=== PATIENT | female | born 1995 | race Caucasian/White ===

== ENCOUNTER → 2017-07-20 18:55 | Outpatient (CLI) | payer BC, SELFPAY ==
[2017-07-23 14:29] LABS: HPV Reflexed? NOT INDICATED
== END ==
PROVIDERS: Family Provider Obstetrics & Gynecology; PCP Obstetrics & Gynecology; Visit Provider Obstetrics & Gynecology
DX: Z01.419 Encounter for gynecological examination (general) (routine) without abnormal findings (principal)
CPT/HCPCS: 88175; G0145

== ENCOUNTER → 2017-08-06 14:15 | Outpatient (CLI) | payer BC, SELFPAY ==
--- NOTE | 2017-08-06 | CER_PTH ---
PATIENT: FAGN RAMIREZ [facility] U#:[id number] AGE/SX: 29/F ROOM: RE08/06/[address]: Dr. Rene Drew MD : 1995 BED: DIS: SPEC #: [id number] RECD: 08/09/17 13:21 STATUS: THALIA WAYNE #: [id number] ZACH: 08/06/17 00:[address]: Rene Drew DEPT: SURGICAL PATHOLOGY RECD BY: Edward Chacko Tissues: A - Uterine cervix, NOS B - Uterine cervix, NOS C - Endocervical Procedures: Surgery Specimen Level IV HEADER OPERATION: Colposcopy PRE-OP DIAGNOSIS: [facility] TISSUE SUBMITTED: A ? Cervical biopsy at 6 o?clock, B - Cervical biopsy at 11 o?clock, C - ECC MICROSCOPIC DIAGNOSIS A. 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 Chronic inflammation. See comment. B. Cervix, 11 o?clock, biopsy: Focal changes consistent with HPV cytopathic effects. See comment. C. ECC: Fragments of benign ecto- and endocervical epithelium, negative for dysplasia. SJ:brandy 08/10/17 COMMENT A & B. Immunohistochemistry ([id number]) for surrogate HPV marker (p16) will be reported separately. MICROSCOPIC DESCRIPTION Slides are reviewed. GROSS DESCRIPTION A - Received in fixative is one container labeled with the patient's name and designated cervical biopsy 6 o'clock. The specimen consists of one irregular fragment of light wyman soft tissue that measures 0.4 x 0.3 x 0.1 cm. The specimen is totally submitted in one cassette. B - Received in fixative is one container labeled with the patient's name and designated cervical biopsy 11 o'clock. The specimen consists of one irregular fragment of light wyman soft tissue that measures 0.3 x 0.3 x 0.1 cm. The specimen is totally submitted in one cassette. C - Received in fixative is one container labeled with the patient's name and designated ECC. The specimen consists of multiple fragments of hemorrhagic mucoid tissue that in aggregate measure 1 x 0.2 x 0.1 cm. The specimen is totally submitted in one cassette. / SEUN:brandy 08/09/17 TC: 5 CPT: 15392 x3
--- NOTE | 2017-08-06 | IMM_PTH ---
PATIENT: FANG RAMIREZ LOC: [facility] U#:[id number] AGE/SX: 29/F ROOM: RE08/06/[address]: Dr. Rene Drew MD : 1995 BED: DIS: SPEC #: [id number] RECD: 08/10/17 10:58 STATUS: THALIA WAYNE #: [id number] ZACH: 08/06/17 00:[address]: Rene Drew DEPT: IMMUNOHISTOCHEMISTRY RECD BY: Eryn Covarrubias Tissues: A - Uterine cervix, NOS B - Uterine cervix, NOS Procedures: p16 (initial) KI-67 (add) PHYSICIAN & [place] [id number] SPECIMEN INFORMATION: Tissue Source: A ? Cervical biopsy at 6 o?clock, B - Cervical biopsy at 11 o?clock Clinical Info: [facility] Specimen Number: [id number] A & B CPT code: 75708 x2, 53876 x2 METHODOLOGY: Deparaffinized sections of prefer/formalin-fixed tissue or PAP/DQ stained slides are incubated with monoclonal/polyclonal antibodies/oligonucleotide probes. Localization is made via biotin free immunoperoxidase method. Appropriate controls are performed and reacted as expected. Results on target cell population are indicated in the following table: RESULTS: ANTIBODY / CLONE RESULT Block A P16 (E6H4) positive, focal and patchy Ki-67 (30-9) positive, low Block B P16 (E6H4) negative Ki-67 (30-9) negative These tests were developed and their performance characteristics determined by [facility]. They may not have been cleared or approved by the U.S. Food and Drug Administration. The FDA has determined that such clearance or approval is not necessary. INTERPRETATION: A. Cervix, 6 o?clock, biopsy: Focal mild squamous dysplasia. B. Cervix, 11 o?clock, biopsy: Focal changes consistent with HPV cytopathic effects. SJ:brandy 08/11/17
--- NOTE | 2017-08-06 14:15 | DT_ITS ---
This patient was seen during an EMR downtime August 02, 2017 - August 09, 2017. This patient may have a combination of paper and electronic documentation or all paper documentation. All documentation is viewable within the e-chart portion of AppSheet for each patient visit.
== END ==
PROVIDERS: Visit Provider Obstetrics & Gynecology
DX: R87.611 Atypical squamous cells cannot exclude high grade squamous intraepithelial lesion on cytologic smear of cervix (ASC-H) (principal)
CPT/HCPCS: 88305; 88341; 88342

== ENCOUNTER → 2018-03-17 16:11 | Outpatient (CLI) | payer BC, SELFPAY ==
[2014-10-27 15:24] VITALS: BMI 25.0
--- NOTE | 2018-03-17 | CER_PTH ---
PATIENT: FANG RAMIREZ LOC: [facility]#:[id number] AGE/SX: 29/F ROOM: RE03/17/[address]: Dr. Laura Davis MD : 1995 BED: DIS: SPEC #: [id number] RECD: 03/17/18 15:50 STATUS: THALIA WAYNE #: [id number] ZACH: 03/17/18 00:[address]: Laura Magallon DEPT: SURGICAL PATHOLOGY RECD BY: Poli Heredia Tissues: A - Uterine cervix, NOS B - Uterine cervix, NOS C - Endocervical Procedures: Surgery Specimen Level IV HEADER OPERATION: Colposcopy PRE-OP DIAGNOSIS: R87.611 TISSUE SUBMITTED: A - Cervical biopsy 5 o'clock, B - Cervical biopsy 12 o'clock, C - [facility] MICROSCOPIC DIAGNOSIS A. Cervix, 5 o'clock, biopsy: Focal HPV changes suspected. B. Cervix, 12 o'clock, biopsy: Focal HPV change/TYSON I. Mild chronic inflammation. C. Endocervix, curettings: Strips of benign superficial endocervix. AM:joselyn 03/21/18 COMMENT A&B: Results from immunohistochemistry ([id number]) for surrogate HPV marker (p16) will be reported separately. MICROSCOPIC DESCRIPTION Slides are reviewed. GROSS DESCRIPTION A. Received in fixative is one container labeled with the patient's name and designated cervical biopsy, 5 o'clock. The specimen consists of one fragment 0.5 x 0.5 x 0.1 cm. The specimen is totally submitted in one cassette. B. Received is one container labeled with the patient name and designated cervical biopsy, 12 o'clock. The specimen consists of multiple irregular fragments of light wyman soft tissue that in aggregate measure 0.6 x 0.5 x 0.1 cm. The specimen is totally submitted in one cassette. C. Received is one container labeled with the patient name and designated ECC cell block. The specimen consists of one irregular fragment of light wyman soft tissue that measures 2.5 cm. The specimen is totally submitted in one cassette. / AM:joselyn 03/19/18 TC: 3 CPT: 04726 x3
--- NOTE | 2018-03-17 15:50 | IMM_PTH ---
PATIENT: FANG RAMIREZ LOC: [facility] U#:[id number] AGE/SX: 29/F ROOM: RE03/17/[address]: Dr. Laura Davis MD : 1995 BED: DIS: SPEC #: [id number] RECD: 03/21/18 12:00 STATUS: THALIA WAYNE #: [id number] ZACH: 03/17/18 15:[address]: Laura Magallon DEPT: IMMUNOHISTOCHEMISTRY RECD BY: Sherri Monzon Tissues: A - Uterine cervix, NOS B - Uterine cervix, NOS Procedures: p16 (initial) KI-67 (add) P16 (add) PHYSICIAN & [place] [address] SPECIMEN INFORMATION: Tissue Source: A. Cervical biopsy 5 o'clock, B. Cervical biopsy 12 o'clock Clinical Info: R87.611 Specimen Number: [id number] A & B CPT code: 47824, 17466 x3 METHODOLOGY: Deparaffinized sections of prefer/formalin-fixed tissue or PAP/DQ stained slides are incubated with monoclonal/polyclonal antibodies/oligonucleotide probes. Localization is made via biotin free immunoperoxidase method. Appropriate controls are performed and reacted as expected. Results on target cell population are indicated in the following table: RESULTS: ANTIBODY / CLONE RESULT Block A P16 (E6H4) positive, rare Ki-67 (30-9) positive, low Block B P16 (E6H4) positive, focal Ki-67 (30-9) positive, low These tests were developed and their performance characteristics determined by [facility]. They may not have been cleared or approved by the U.S. Food and Drug Administration. The FDA has determined that such clearance or approval is not necessary. INTERPRETATION: A. Cervical biopsy 5 o'clock: Suspicious for focal HPV change. B. Cervical biopsy 12 o'clock: Consistent with focal HPV change. AM:brandy 03/22/18
[2018-03-21 13:21] LABS: HPV Reflexed? NOT INDICATED
--- OUTSIDE RECORDS SUMMARY | 2018-05-22 11:48 | XMS RPT_ITS ---
:1995 External Reference #:[id number] Author Organization [facility] Care Team Providers Name Role Phone ReillyLaura Harris Attending Unavailable Reilly-Ryan, Summer Referring Unavailable Reilly-Ryan, Summer Primary Care Unavailable Reilly-Ryansummer Attending Unavailable Reilly-Ryansummer Primary Care Unavailable Rene Drew Attending Unavailable PROBLEMS PROBLEMS DATE TYPE CONDITION / CODE ATTENDING STATUS SOURCE 03/17/2018 Unknown R87.611 - Atypical Raymundo Active [place] squamous cells cannot [facility] exclude high grade Hospital squamous Repository intraepithelial lesion on cytologic smear of cervix (ASC-H) / R87.611(ICD-10) 07/22/2017 Unknown Z12.4 - Encounter for Caryl Fonseca screening for [facility] malignant neoplasm of Hospital cervix / Repository Z12.4(ICD-10) 07/22/2017 Unknown Z01.419 - Encounter Caryl Fonseca for gynecological [facility] examination (general) Hospital (routine) without Repository abnormal findings / Z01.419(ICD-10) PROCEDURES PROCEDURES No Procedure Records FoundRESULTS RESULTS IMMUNOHISTOCHEMISTRY Observed: 03/17/2018 Status: F Source: [place] 3:50 PM [facility] REPOSITORY Patient: BELGICA RAMIREZ : 1995 () Acct Num: [id number] Phys: Raymudno SANCHEZ,Summer Unit Num: [id number] Loc: [facility] Specimen: [id number] Received: 03/21/18 - 1200 Spec Type: IMMUNO TISSUES 1 TISSUES: A. Uterine cervix, NOS B. Uterine cervix, NOS SPECIMEN INFORMATION: Tissue Source: A. Cervical biopsy 5 o'clock, B. Cervical biopsy 12 o'clock Clinical Info: R87.611 Specimen Number: [id number] A AND B CPT code: 73488, 36430 x3 METHODOLOGY: Deparaffinized sections of prefer/formalin-fixed tissue or PAP/DQ stained slides are incubated with monoclonal/polyclonal antibodies/oligonucleotide probes. Localization is made via biotin free immunoperoxidase method. Appropriate controls are performed and reacted as expected. Results on target cell population are indicated in the following table: RESULTS: ANTIBODY / CLONE RESULT Block A P16 (E6H4) positive, rare Ki-67 (30-9) positive, low Block B P16 (E6H4) positive, focal Ki-67 (30-9) positive, low These tests were developed and their performance characteristics determined by [facility]. They may not have been cleared or approved by the U.S. Food and Drug Administration. The FDA has determined that such clearance or approval is not necessary. INTERPRETATION: A. Cervical biopsy 5 o'clock: Suspicious for focal HPV change. B. Cervical biopsy 12 o'clock: Consistent with focal HPV change. AM:brandy 03/22/18 PHYSICIAN AND INSTITUTION [address] [address] Signed Champ Pink DO 03/22/18 <signature on file> Performed By: #### PIMM #### [facility] [address] [place] [address]. [place], [address] PAP I-G W/RFX Collected: 03/17/2018 Status: F Source: [place] HRHPV-APTIMA 10:45 AM [facility] REPOSITORY Order Comment: CYTOLOGY INFORMATION: - CLINICAL INFORMATION: - DATE LMP/MENOPAUSE: 03/07/18 LMP - COLLECTION VIAL: Thin Prep Vial - CONTRACT PROCESSOR SOURCE: CERVICAL/ENDOCERVICAL - COLLECTION TECHNIQUE: BRUSH/SPATULA Specimen Comment: [id number] Specimen Comment: Source.............Endocervix;Labia/Vulva Specimen Comment: LMP / Prev Treat...TDK=[id number] Specimen Comment: No. of containers..01 ThinPrep Vial TYPE CODE TESTS RESULT OUT OF RANGE REFERENCE UNITS LAB L7400.0800 . Normal DIAGN Comment Result Comment: NEGATIVE FOR INTRAEPITHELIAL LESION OR MALIGNANCY. LAB L7400.0900 . Normal ADEQ Comment Result Comment: Satisfactory for evaluation. Endocervical and/or squamous metaplastic cells (endocervical component) are present. LAB L7400.1400 . Normal PERFORM Comment Result Comment: Destiny Murillo, Improvement Spec LAB L7400.2575 . Normal TEST METHOD Comment Result Comment: This liquid based ThinPrep(R) pap test was screened with the use of an image guided system. LAB L7400.2600 . Normal . COMM LAB L7400.2700 . Normal PAPSMR Comment Result Comment: The Pap smear is a screening test designed to aid in the detection of premalignant and malignant conditions of the uterine cervix. It is not a diagnostic procedure and should not be used as the sole means of detecting cervical cancer. Both false-positive and false-negative reports do occur. LAB L7400.2800 . Normal HPV RFLX Comment Result Comment: The HPV DNA reflex criteria were not met with this specimen result therefore, no HPV testing was performed. Performed at: - [facility] [id number] Information Security Analyst: Ava Fox MD, Phone: [phone] Performed By: #### L7400.0353 #### [facility] (refer to report for specific site) refer to report for address and phone number CERVICAL Observed: 03/17/2018 Status: F Source: [place] 12:00 AM [facility] REPOSITORY Patient: BELGICA RAMIREZ : 1995 (22/F) Acct Num: [id number] Phys: Raymundo SANCHEZ,Summer Unit Num: [id number] Loc: [facility] Specimen: [id number] Received: 03/17/181549 Spec Type: CERV TISSUES 1 TISSUES: A. Uterine cervix, NOS B. Uterine cervix, NOS C. Endocervical COMMENT A AND B: Results from immunohistochemistry ([id number]) for surrogate HPV marker (p16) will be reported separately. GROSS DESCRIPTION A. Received in fixative is one container labeled with the patient's name and designated cervical biopsy, 5 o'clock. The specimen consists of one fragment 0.5 x 0.5 x 0.1 cm. The specimen is totally submitted in one cassette. B. Received is one container labeled with the patient name and designated cervical biopsy, 12 o'clock. The specimen consists of multiple irregular fragments of light wyman soft tissue that in aggregate measure 0.6 x 0.5 x 0.1 cm. The specimen is totally submitted in one cassette. C. Received is one container labeled with the patient name and designated ECC cell block. The specimen consists of one irregular fragment of light wyman soft tissue that measures 2.5 cm. The specimen is totally submitted in one cassette. / AM:sp 03/19/18 TC: 3 CPT: 39093 x3 HEADER OPERATION: Colposcopy PRE-OP DIAGNOSIS: R87.611 TISSUE SUBMITTED: A - Cervical biopsy 5 o'clock, B - Cervical biopsy 12 o'clock , C - ECC MICROSCOPIC DESCRIPTION Slides are reviewed. MICROSCOPIC DIAGNOSIS A. Cervix, 5 o'clock, biopsy: Focal HPV changes suspected. B. Cervix, 12 o'clock, biopsy: Focal HPV change/TYSON I. Mild chronic inflammation. C. Endocervix, curettings: Strips of benign superficial endocervix. AM:sp 03/21/18 Signed Champ Pink, 03/22/18 <signature on file> Performed By: #### PCER #### [facility] [place], [address] DOWNTIME REPORT Observed: 08/19/2017 Status: F Source: [place] 1:23 PM [facility] REPOSITORY [facility] Medical Records Department [address] [place] [address] Downtime Report MR#: [id number] Acct: [id number] Name: BELGICA RAMIREZ Rep #: [id number] : 1995 22 From: Gerry Barone PCP: Status: REG CLI This patient was seen during an EMR downtime August 02, 2017 - August 09, 2017. This patient may have a combination of paper and electronic documentation or all paper documentation. All documentation is viewable within the e-chart portion of [facility] for each patient visit. CERVICAL Observed: 08/06/2017 Status: F Source: [place] 12:00 AM [facility] REPOSITORY Patient: BELGICA RAMIREZ : 1995 () Acct Num: [id number] Phys: Rene Drew MD Unit Num: [id number] Loc: [facility] Specimen: [id number] Received: 08/09/17 - 1321 Spec Type: CERV TISSUES TISSUES: A. Uterine cervix, NOS B. Uterine cervix, NOS C. Endocervical COMMENT A AND B. Immunohistochemistry ([id number]) for surrogate HPV marker (p16) will be reported separately. GROSS DESCRIPTION A - Received in fixative is one container labeled with the patient's name and designated cervical biopsy 6 o'clock. The specimen consists of one irregular fragment of light wyman soft tissue that measures 0.4 x 0.3 x 0.1 cm. The specimen is totally submitted in one cassette. B - Received in fixative is one container labeled with the patient's name and designated cervical biopsy 11 o'clock. The specimen consists of one irregular fragment of light wyman soft tissue that measures 0.3 x 0.3 x 0.1 cm. The specimen is totally submitted in one cassette. C - Received in fixative is one container labeled with the patient's name and designated ECC. The specimen consists of multiple fragments of hemorrhagic mucoid tissue that in aggregate measure 1 x 0.2 x 0.1 cm. The specimen is totally submitted in one cassette. / SEUN:brandy 08/09/17 TC: 5 CPT: 35344 x3 HEADER OPERATION: Colposcopy PRE-OP DIAGNOSIS: ASCH TISSUE SUBMITTED: A Cervical biopsy at 6 o clock, B - Cervical biopsy at 11 o clock, C - ECC MICROSCOPIC DESCRIPTION Slides are reviewed. MICROSCOPIC DIAGNOSIS A. 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 Chronic inflammation. See comment. B. Cervix, 11 o clock, biopsy: Focal changes consistent with HPV cytopathic effects. See comment. C. ECC: Fragments of benign ecto- and endocervical epithelium, negative for dysplasia. SJ:brandy 08/10/17 Signed Darian Carmen 08/11/17 <signature on file> Performed By: #### PCER #### [facility] [address] [place], [address] IMMUNOHISTOCHEMISTRY Observed: 08/06/2017 Status: F Source: [place] 12:00 AM [facility] REPOSITORY Patient: BELGICA RAMIREZ : 1995 (22/) Acct Num: [id number] Phys: Rene Drew MD Unit Num: [id number] Loc: [facility] Specimen: [id number] Received: 08/10/17 - 1057 Spec Type: IMMUNO TISSUES TISSUES: A. Uterine cervix, NOS B. Uterine cervix, NOS SPECIMEN INFORMATION: Tissue Source: A Cervical biopsy at 6 o clock, B - Cervical biopsy at 11 o clock Clinical Info: [facility] Specimen Number: [id number] A AND B CPT code: 89761 x2, 64855 x2 METHODOLOGY: Deparaffinized sections of prefer/formalin-fixed tissue or PAP/DQ stained slides are incubated with monoclonal/polyclonal antibodies/oligonucleotide probes. Localization is made via biotin free immunoperoxidase method. Appropriate controls are performed and reacted as expected. Results on target cell population are indicated in the following table: RESULTS: ANTIBODY / CLONE RESULT Block A P16 (E6H4) positive, focal and patchy Ki-67 (30-9) positive, low Block B P16 (E6H4) negative Ki-67 (30-9) negative These tests were developed and their performance characteristics determined by [facility]. They may not have been cleared or approved by the U.S. Food and Drug Administration. The FDA has determined that such clearance or approval is not necessary. INTERPRETATION: A. Cervix, 6 o clock, biopsy: Focal mild squamous dysplasia. B. Cervix, 11 o clock, biopsy: Focal changes consistent with HPV cytopathic effects. SJ:brandy 08/11/17 PHYSICIAN AND INSTITUTION [address] [address] Signed Darian Jain 08/11/17 <signature on file> Performed By: #### PIMM #### [facility] [address] [place] [address]. [place], [place], [address] PAP I-G W/RFX Collected: 07/20/2017 Status: F Source: [place] HRHPV-APTIMA 1:30 PM [facility] REPOSITORY Order Comment: CYTOLOGY INFORMATION: - CLINICAL INFORMATION: HYSTERECTOMY - DATE LMP/MENOPAUSE: LMP - COLLECTION VIAL: Thin Prep Vial - CONTRACT PROCESSOR SOURCE: CERVICAL/ENDOCERVICAL - COLLECTION TECHNIQUE: BRUSH/SPATULA Specimen Comment: [id number] Specimen Comment: No. of containers..01 ThinPrep Vial TYPE CODE TESTS RESULT OUT OF REFERENCE UNITS RANGE LAB L7400.0800 . High DIAGN Comment Result Comment: EPITHELIAL CELL ABNORMALITY. ATYPICAL SQUAMOUS CELLS, CANNOT EXCLUDE HIGH-GRADE SQUAMOUS INTRAEPITHELIAL LESION. LAB L7400.0900 . Normal ADEQ Comment Result Comment: Satisfactory for evaluation. Endocervical and/or squamous metaplastic cells (endocervical component) are present. LAB L7400.1400 . Normal PERFORM Comment Result Comment: Tano Luevano, Improvement Spec (ASCP) LAB L7400.1700 . Normal SIGN Comment Result Comment: Ernesto Boyd MD (Charles), Pathologist LAB L7400.1720 . Normal Path prov. Comment ICD9 Result Comment: R87.611 LAB L7400.2575 . Normal TEST METHOD Comment Result Comment: This liquid based ThinPrep(R) pap test was screened with the use of an image guided system. LAB L7400.2600 . Normal . COMM LAB L7400.2700 . Normal PAPSMR Comment Result Comment: The Pap smear is a screening test designed to aid in the detection of premalignant and malignant conditions of the uterine cervix. It is not a diagnostic procedure and should not be used as the sole means of detecting cervical cancer. Both false-positive and false-negative reports do occur. LAB L7400.2800 . Normal HPV RFLX Comment Result Comment: The HPV DNA reflex criteria were not met with this specimen result therefore, no HPV testing was performed. Performed at: [facility] [place] [id number] Information Security Analyst: Kaylynn Stephens MD, Phone: [phone] Performed at: [facility] [id number] Information Security Analyst: Ava Fox MD, Phone: [phone] Performed By: #### L7400.0353 #### [facility] (refer to report for specific site) refer to report for address and phone number ALLERGIES ALLERGIES DATE TYPE / CODE NAME / CODE REACTION SEVERITY SOURCE 10/27/2014 Drug No Known Unknown [facility] Allergy/4160 Allergies/F00 [facility] [address](SNOMED 0780059(RXNOR Repository CT) M) ENCOUNTERS ENCOUNTERS ADMIT/DISCHARGE ACCOUNT ADMITTING ENCOUNTER LOCATION SOURCE NUMBER CLASS 03/17/2018 [id number] Ambulatory [place] 3 [facility] ing:[facility] Repository 08/06/2017 [id number] Ambulatory [place] 9 [facility] ing:[facility] Repository 07/20/2017 [id number] [facility] ing:[facility] Repository PAYERS PAYERS ENCOUNTER GUARANTOR PAYER SUBSCRIBER SOURCE 03/17/2018 [place] AMAYAB: [place] [id number] Insurance:ANTHEMPolic [id number] [facility] [address] y Number: [place], [place] [id number] Repository [address]Uml: (330) Date:6860-45-64SL [phone] () [address], [place] [address]BS: 03/17/2018 Secondary NOT GIVENUNK [place] Insurance:SELF PAY [facility] Number: Effective Repository Date:2018-03-17 08/06/2017 [place] AmayaB: [place] [id number] [facility] [id number] [facility] [address] y Number: [place], [place] [id number] Repository [address]Ijk: (330) Date:[id number] [phone] () [address], [place] [address]NT: 08/06/2017 Secondary NOT GIVENUNK [place] Insurance:SELF PAY [facility]: Effective Repository Date:2017-08-06 07/20/2017 [place] AmayaB: [place] [id number] [facility] [id number] [facility] [address] y Number: [place], [place] [id number] Repository [address]Diy: (330) Date:[id number] [phone] () [address], [place] [address]XM: 07/20/2017 Secondary NOT GIVENUNK [place] Insurance:SELF PAY [facility] Number: Effective Repository Date:2017-07-20
== END ==
PROVIDERS: Family Provider Obstetrics & Gynecology; PCP Obstetrics & Gynecology; Referring Provider Obstetrics & Gynecology; Visit Provider Obstetrics & Gynecology
DX: Z12.4 Encounter for screening for malignant neoplasm of cervix (principal); R87.611 Atypical squamous cells cannot exclude high grade squamous intraepithelial lesion on cytologic smear of cervix (ASC-H)
CPT/HCPCS: 87624; 88175; 88305; 88341; 88342; G0145